=== PATIENT | female | born 1995 | race Caucasian/White ===

== ENCOUNTER 2016-11-29 16:47 | Emergency (ER) | payer BC ==
--- NOTE | 2016-11-29 18:18 | ERRECORD ---
[facility] EMERGENCY RECORD HPI FOOT (17:45 WMEI) CHIEF COMPLAINT: Patient presents for evaluation of injury, to the left foot, Patient presents for evaluation of pain, to the left foot, Patient presents for evaluation of swelling, to the left foot. HISTORIAN: History provided by patient, twisted l foot immediate pain lateral foot not ankle. MECHANISM OF INJURY: Mechanism of injury: Body motion, inversion, twisting. LOCATION: Symptoms are localized, most severe in the fifth metatarsal, unable to bear wt. QUALITY: Pain is dull in nature. TIME COURSE: Sudden onset of symptoms, 2, hours prior to arrival. ASSOCIATED WITH: No associated symptoms. EXACERBATED BY: Patient's condition exacerbated by inversion, Patient's condition exacerbated by walking, Patient's condition exacerbated by bearing weight. RELIEVED BY: Patient's condition relieved by nothing. ROS (17:47 WMEI) CONSTITUTIONAL: Negative constitutional review of systems, Historian denies chills, denies fatigue. EYES: Historian denies eye pain, denies eye discharge. ENT: Historian denies rhinorrhea, denies sore throat. CARDIOVASCULAR: Historian denies chest pain, no radiation. RESPIRATORY: Historian denies cough, denies shortness of breath. GI: Historian denies nausea, denies vomiting. MUSCULOSKELETAL: Historian reports fall, reports joint swelling. see hpi 5th metatarsal pain swelling injury. SKIN: Historian reports skin changes, reports skin lesions. NEUROLOGIC: Historian denies headache, denies paresthesias. PSYCHIATRIC: Historian denies alcohol abuse, denies drug abuse. PAST MEDICAL HISTORY (17:00 CTUR) MEDICAL HISTORY: No past medical history, Flu vaccine not up to date, Tetanus immunization up to date, Pneumococcal vaccine not up to date. FEMALE SURGICAL HISTORY: cyst removal from uterus in 2016 verified 11/29/16. PSYCHIATRIC HISTORY: No previous psychiatric history, no previous emergency department psychiatric evaluations, Notes: denies all verified 11/29/16. SOCIAL HISTORY: Patient drinks socially, rarely, Patient denies drug use, Patient has no smoking history. KNOWN ALLERGIES No Known Drug Allergies &a-1R&a+25V*p+0X*t0916Q*c202B*c15G*c2P*p-0X&a-25V&a+1R Name: Sammie Quintanilla : 1995 F21 MedRec: [id number] AcctNum: [id number] Prepared: Aiyana Nov 29, 2016 21:54 by Interface Page 1 of 3 pMD [facility] EMERGENCY RECORD CURRENT MEDICATIONS (17:10 CTUR) None VITAL SIGNS (16:54 CTUR) VITAL SIGNS: BP: 130/74, Pulse: 104, Resp: 18, Pain: 6, O2 sat: 98 on Room Air, Time: 11/29/2016 16:54. PHYSICAL EXAM (17:49 WMEI) CONSTITUTIONAL: Vital Signs Reviewed, Patient appears non toxic, Patient alert and oriented to person, place and time. HEAD: Head exam included findings of head atraumatic, normocephalic. EYES: Conjunctiva normal, Sclera normal. ENT: Ear exam normal, Nose exam normal. NECK: Neck exam included findings of normal range of motion, Trachea midline. RESPIRATORY CHEST: Breath sounds clear, Chest exam included findings of chest movement symmetrical. CARDIOVASCULAR: Cardiovascular exam included findings of heart rate regular rate and rhythm, Heart sounds normal. ABDOMEN FEMALE: Abdominal exam included findings of abdomen nontender, Bowel sounds normal. UPPER EXTREMITY: Upper extremity exam included findings of inspection normal, Range of motion normal, Motor strength normal. LOWER EXTREMITY: Lower leg normal, bilaterally, Ankle examination normal findings, bilaterally, Swelling of the foot noted, left foot, Foot tenderness, left foot, swollen tender l 5th metatarsal. NEURO: [place] coma scale 15, Neuro exam findings include patient oriented to person, place and time, Speech normal, Gait normal. SKIN: Skin exam included findings of skin warm, dry, and normal in color. LYMPHATIC: Lymphatic exam normal. PSYCHIATRIC: Psychiatric exam included findings of patient oriented to person place and time, Normal affect, Judgment normal, Insight normal. PROBLEM LIST No recorded problems DIAGNOSIS (17:53 WMEI) FINAL: PRIMARY: fot sprain. PRESCRIPTION No recorded prescriptions DISPOSITION PATIENT: Disposition Type: Discharge, Disposition: *Discharge Home. (17:53 WMEI) Patient left the department. (18:11 CTUR) &a-1R&a+25V*p+0X*i4506F*c202B*c15G*c2P*p-0X&a-25V&a+1R Name: Sammie Quintanilla : 1995 MedRec: [id number] AcctNum: [id number] Prepared: Aiyana Nov 29, 2016 21:54 by Interface Page 2 of 3 pMD [facility] EMERGENCY RECORD Jeffers: CTUR=SIM Armendariz, Flavia WMEI=DO Dumont William &a-1R&a+25V*p+0X*q1944G*c202B*c15G*c2P*p-0X&a-25V&a+1R Name: Sammie Quintanilla : 1995 1 MedRec: [id number] AcctNum: [id number] Prepared: Aiyana Nov 29, 2016 21:54 by Interface Page 3 of 3 pMD MTDD
--- NOTE | 2016-11-29 18:25 | PICIS ---
[facility] EMERGENCY RECORD TRIAGE (16:54 CTUR) TRIAGE NOTES: Patient fell off her porch at home and twisted her foot landing on her left ankle/foot. (16:54 CTUR) PATIENT: NAME: Sammie Quintanilla, AGE: 21, GENDER: female, : Wed1995, TIME OF GREET: Sun Nov 29, 2016 16:48, PREFERRED LANGUAGE: [place] Zealander, ETHNICITY: Not or , ECODE BILLING MAP: [facility], Zip Code: [address], KG WEIGHT: 99.79, , , PERSON ID: [id number], PCP: None. (16:54 CTUR) PHONE: , PAYMENT: SocialDial. (17:47) COMPLAINT: Left Foot Pain. (16:54 CTUR) ADMISSION: URGENCY: 3 Urgent, ADMISSION SOURCE: Home, TRANSPORT: CAR, BED: TRIAGE. (16:54 CTUR) SIRS SCORING: Heart Rate 55-109 (0), respiratory rate 12-24 (0), Mental Status altered: no (0). (17:00 CTUR) TRIAGE SCREENING: Patient denies suicidal ideation, Patient denies presence of domestic violence. (17:00 CTUR) LMP: Last menstrual period: 11/10/2016. (17:00 CTUR) PROVIDERS: TRIAGE NURSE: Flavia Armendariz RN. (16:54 CTUR) VITAL SIGNS: BP 130/74, Pulse 104, Resp 18, Pain 6, O2 Sat 98, on Room Air, Time 11/29/2016 16:54. (16:54 CTUR) KNOWN ALLERGIES No Known Drug Allergies CURRENT MEDICATIONS (17:10 CTUR) None VITAL SIGNS (16:54 CTUR) VITAL SIGNS: BP: 130/74, Pulse: 104, Resp: 18, Pain: 6, O2 sat: 98 on Room Air, Time: 11/29/2016 16:54. NURSING ASSESSMENT: FOCUSED (17:10 CTUR) CONSTITUTIONAL: Complex assessment performed, Patient arrives, via hospital wheelchair, Unsteady gait, Assistance to cart, History obtained from patient, Patient appears comfortable, Patient cooperative, Patient alert, Oriented to person, place and time, Skin warm, Skin dry, Skin normal in color, Mucous membranes pink, Mucous membranes moist, Patient complains of Left foot pain, Patient had a fall only complains of pain to the top of her left foot and inability to move her pinky toe, hematoma noted to top of left foot. PAIN: aching pain, on a scale 0-10 patient rates pain as 6, Nothing has been tried to alleviate the pain. NONVERBAL PAIN: Non-Verbal pain assessment findings include: No non-verbal complaints while at rest (0), Non-Verbal complaints present with movement (1), Facial Grimaces not present at rest (0), Facial grimaces present with movement (1), Bracing not present at rest (0), Bracing present with movement (1), &a-1R&a+25V*p+0X*f8902Q*c202B*c15G*c2P*p-0X&a-25V&a+1R Name: Sammie Quintanilla : 1995 F21 MedRec: [id number] AcctNum: [id number] Prepared: Aiyana Nov 29, 2016 22:00 by Interface Page 1 of 5 pMD [facility] EMERGENCY RECORD Restlessness not present at rest (0), Restlessness not present with movement (0), Rubbing not present at rest (0), Rubbing present with movement (1), Result: 4. MUSCULOSKELETAL: Focused musculoskeletal assessment findings include edema, top of left foot, pedal pulse +3, posterior tibia pulse +3, Notes: pt twisted her foot per her statement, foot elevated in triage, pt unable to bear weight to left foot at this time. SAFETY: Side rails up, Cart/Stretcher in lowest position, Family at bedside, Call light within reach, Hospital ID band on. NURSING PROCEDURE: DISCHARGE NOTE (18:12 CTUR) DISCHARGE: Patient discharged to home, ambulating with crutches, friend driving, accompanied by //partner, Summary of Care printed/ provided, Transition record given to patient, Discharge instructions given to patient, Simple or moderate discharge teaching performed, by SIM Alejandro, Above person(s) verbalized understanding of discharge instructions and follow-up care, Patient treated and evaluated by physician. BELONGINGS: Belongings and valuables with patient upon arrival to the Emergency Department include:, Belongings and valuables with patient at time of discharge include:, Belongings remain with patient, Valuables remain with patient. SAFETY: Side rails up, Cart/Stretcher in lowest position, Family at bedside, Call light within reach, Hospital ID band on, Notes: Pt sent home with crutches and left foot adriana wrapped. NURSING PROCEDURE: NURSE NOTES (17:30 CTUR) NURSES NOTES: Notes: Ice pack provided to pt to cover left foot, left foot elevatged on stool. ORDER DETAILS Order Name: CRUTCH ACQUISTION AND INSTRUCTION ED, Status: Active, Time: 17:52 11/29/2016, User: AMBER, - Ordered for: DO Dumont William, - Entered by: DO Dumont William - Aiyana Nov 29, 2016 17:52, - Quantity: 1, Order Name: Miscellaneous Nurse Order(s), Status: Done, Time: 18:11 11/29/2016, User: SHANT, - Ordered for: DO Dumont William, - Entered by: DO Dumont William - Aiyana Nov 29, 2016 17:52, - Quantity: 1, Order Name: XR Foot Lt 3 View STANDARD, Status: Active, Time: 17:02 11/29/2016, User: SHANT, - Ordered for: DO Dumont William, - Entered by: SIM Armendariz Christin - Aiyana Nov 29, 2016 17:02, - Quantity: 1. HPI FOOT (17:45 WMEI) &a-1R&a+25V*p+0X*w1555M*c202B*c15G*c2P*p-0X&a-25V&a+1R Name: Faith Conde Sammie Zeb : 1995 F21 MedRec: [id number] AcctNum: [id number] Prepared: Aiyana Nov 29, 2016 22:00 by Interface Page 2 of 5 pMD [facility] EMERGENCY RECORD CHIEF COMPLAINT: Patient presents for evaluation of injury, to the left foot, Patient presents for evaluation of pain, to the left foot, Patient presents for evaluation of swelling, to the left foot. HISTORIAN: History provided by patient, twisted l foot immediate pain lateral foot not ankle. MECHANISM OF INJURY: Mechanism of injury: Body motion, inversion, twisting. LOCATION: Symptoms are localized, most severe in the fifth metatarsal, unable to bear wt. QUALITY: Pain is dull in nature. TIME COURSE: Sudden onset of symptoms, 2, hours prior to arrival. ASSOCIATED WITH: No associated symptoms. EXACERBATED BY: Patient's condition exacerbated by inversion, Patient's condition exacerbated by walking, Patient's condition exacerbated by bearing weight. RELIEVED BY: Patient's condition relieved by nothing. ROS (17:47 WMEI) CONSTITUTIONAL: Negative constitutional review of systems, Historian denies chills, denies fatigue. EYES: Historian denies eye pain, denies eye discharge. ENT: Historian denies rhinorrhea, denies sore throat. CARDIOVASCULAR: Historian denies chest pain, no radiation. RESPIRATORY: Historian denies cough, denies shortness of breath. GI: Historian denies nausea, denies vomiting. MUSCULOSKELETAL: Historian reports fall, reports joint swelling. see hpi 5th metatarsal pain swelling injury. SKIN: Historian reports skin changes, reports skin lesions. NEUROLOGIC: Historian denies headache, denies paresthesias. PSYCHIATRIC: Historian denies alcohol abuse, denies drug abuse. PAST MEDICAL HISTORY (17:00 CTUR) MEDICAL HISTORY: No past medical history, Flu vaccine not up to date, Tetanus immunization up to date, Pneumococcal vaccine not up to date. FEMALE SURGICAL HISTORY: cyst removal from uterus in 2016 verified 11/29/16. PSYCHIATRIC HISTORY: No previous psychiatric history, no previous emergency department psychiatric evaluations, Notes: denies all verified 11/29/16. SOCIAL HISTORY: Patient drinks socially, rarely, Patient denies drug use, Patient has no smoking history. PHYSICAL EXAM (17:49 WMEI) CONSTITUTIONAL: Vital Signs Reviewed, Patient appears non toxic, Patient alert and oriented to person, place and time. HEAD: Head exam included findings of head atraumatic, &a-1R&a+25V*p+0X*v7338R*c202B*c15G*c2P*p-0X&a-25V&a+1R Name: Sammie Quintanilla : 1995 F21 MedRec: [id number] AcctNum: [id number] Prepared: Aiyana Nov 29, 2016 22:00 by Interface Page 3 of 5 pMD [facility] EMERGENCY RECORD normocephalic. EYES: Conjunctiva normal, Sclera normal. ENT: Ear exam normal, Nose exam normal. NECK: Neck exam included findings of normal range of motion, Trachea midline. RESPIRATORY CHEST: Breath sounds clear, Chest exam included findings of chest movement symmetrical. CARDIOVASCULAR: Cardiovascular exam included findings of heart rate regular rate and rhythm, Heart sounds normal. ABDOMEN FEMALE: Abdominal exam included findings of abdomen nontender, Bowel sounds normal. UPPER EXTREMITY: Upper extremity exam included findings of inspection normal, Range of motion normal, Motor strength normal. LOWER EXTREMITY: Lower leg normal, bilaterally, Ankle examination normal findings, bilaterally, Swelling of the foot noted, left foot, Foot tenderness, left foot, swollen tender l 5th metatarsal. NEURO: [place] coma scale 15, Neuro exam findings include patient oriented to person, place and time, Speech normal, Gait normal. SKIN: Skin exam included findings of skin warm, dry, and normal in color. LYMPHATIC: Lymphatic exam normal. PSYCHIATRIC: Psychiatric exam included findings of patient oriented to person place and time, Normal affect, Judgment normal, Insight normal. EVENTS TRANSFER: Triage to Emergency Triage. (Aiyana Nov 29, 2016 16:54 CTUR) Emergency Triage to Emergency Room -05. (16:54 CTUR) Removed from Emergency Emergency Room -05. (18:11 CTUR) PROBLEM LIST No recorded problems DIAGNOSIS (17:53 WMEI) FINAL: PRIMARY: fot sprain. DISPOSITION PATIENT: Disposition Type: Discharge, Disposition: *Discharge Home. (17:53 WMEI) Patient left the department. (18:11 CTUR) INSTRUCTION (17:54 WMEI) DISCHARGE: FOOT SPRAIN, CRUTCH WALKING. SPECIAL: Follow-up with your PCP no wt bearing till followed up with pcp. PRESCRIPTION No recorded prescriptions &a-1R&a+25V*p+0X*l3265Z*c202B*c15G*c2P*p-0X&a-25V&a+1R Name: Sammie Quintanilla : 1995 F21 MedRec: [id number] AcctNum: [id number] Prepared: Aiyana Nov 29, 2016 22:00 by Interface Page 4 of 5 pMD [facility] EMERGENCY RECORD IMAGING (18:12 LGIB) *DISCHARGE INSTRUCTIONS RECEIPT: Image captured from scanner. *SUPPLY CHARGE SHEET: Image captured from scanner. ADMIN (21:48 [facility]) DIGITAL SIGNATURE: DO Dumont William. Jeffers: CTUR=SIM Armendariz, Flavia LGIB=SIM Barrientos, Paula WMEI=DO Dumont William &a-1R&a+25V*p+0X*n0983X*c202B*c15G*c2P*p-0X&a-25V&a+1R Name: Sammie Quintanilla : 1995 F21 MedRec: [id number] AcctNum: [id number] Prepared: Aiyana Nov 29, 2016 22:00 by Interface Page 5 of 5 pMD MTDD
--- NOTE | 2016-11-29 18:51 | RAD ---
LEFT FOOT THREE VIEWS: Date: 11-29-16 FINDINGS: No fracture was seen. All bones appeared intact. No periosteal reaction was appreciated. IMPRESSION: No acute bony findings. POS: HOME
== END 2016-11-29 18:10 | disposition home or self-care (01) ==
LOC: BURERS 16:47
DX: S93.602A Unspecified sprain of left foot, initial encounter (principal); X58.XXXA Exposure to other specified factors, initial encounter
CPT/HCPCS: 99283

== ENCOUNTER 2022-04-24 23:22 | Emergency (ER) | payer BC ==
[2022-04-25 01:01] LABS: ALT (SGPT) 34 U/L (8-55); AST (SGOT) 15 U/L (5-34); Alkaline Phosphatase 89 U/L (40-110); Anion Gap 15 mmol/L (10-20); BUN (Urea Nitrogen) 13 mg/dL (7.0-18.7); Bilirubin, Total 0.4 mg/dL (0.2-1.2); Calc. Creatinine Clearance 0 mL/min (70-130); Calcium 8.7 mg/dL (7.8-10.44); Carbon Dioxide 24 mmol/L (22-29); Chloride 105 mmol/L (98-107); Globulin 3.4 g/dL (2.4-3.5); Glucose 89 mg/dL (70-105); Potassium 3.8 mmol/L (3.5-5.1); Protein, Total 7.4 g/dL (6.0-8.3); Sodium 140 mmol/L (136-145)
[2022-04-25 01:03] LABS: #Basophils 0.1 thou/uL (0.0-0.2); #Eosinphils 0.1 thou/uL (0.0-0.7); #Lymphocytes 3.3 thou/uL (1.20-3.40); #Monocytes 0.6 thou/uL (0.11-0.59); #Neutrophils 5.6 thou/uL (1.40-6.50); %Basophils 1.3 % (0.0-1.0); %Eosinophils 1.1 % (0.0-10.0); %Lymphocytes 34.1 % (21.0-51.0); %Monocytes 6.2 % (0.0-10.0); %Neutrophils 57.4 % (42.0-75.0); Hemoglobin 12.9 g/dL (12.0-16.0); Mean Corpuscular Hemoglobin 27.8 pg (27.0-31.0); Mean Corpuscular Volume 84.3 fL (78.0-98.0); Mean Platelet Volume 9.5 fL (7.4-10.4); Platelet Count 277 thou/uL (130-400); RBC Distribution Width 13.2 % (11.5-14.5); Red Blood Cell (RBC) Count 4.64 mill/uL (4.20-5.40); White Blood Cell (WBC) Count 9.7 thou/uL (4.8-10.8)
[2022-04-25 02:02] LABS: Pregnancy Test - Urine (BHCG) Negative (Negative); Pregu Control Background? CLEAR/WHITE (CLR/WHITE); Pregu Control Bar Appear? YES (CONTROL BAR)
== END 2022-04-25 01:57 | disposition home or self-care (01) ==
LOC: BURERS 23:22
DX: R07.9 Chest pain, unspecified (principal)
CPT/HCPCS: 36415; 71045; 80053; 81025; 84484; 85025; 93005